=== PATIENT | male | born 2000 | race Caucasian/White ===

== ENCOUNTER 2022-05-10 09:03 | Observation (INO) ==
[2022-05-10] MEDS ORDERED: fentaNYL citrate 100 MCG/2 ML VIAL IV STA ×2 (09:19→09:57)
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
[2022-05-10 09:44] LABS: Basophils # (auto) 0.05 K/uL (0-0.2); Basophils % (auto) 0.6 %; Eosinophils # (auto) 0.12 K/uL (0-0.50); Eosinophils % (auto) 1.4 %; Hematocrit (blood only) 48.8 % (40.1-51.0); Hemoglobin 16.7 g/dl (14.0-18.0); Immature Granulocytes # (auto) 0.04 K/uL (0.00-0.02); Immature Granulocytes % (auto) 0.5 %; Lymphocytes # (auto) 1.24 K/uL (1.2-3.4); Lymphocytes % (auto) 14.4 %; Mean Corpuscular Hemoglobin 29.1 pg (25.0-34.0); Mean Corpuscular Hgb Conc 34.2 g/dL (32.0-36.0); Mean Platelet Volume 11.2 fL (9.4-12.4); Monocytes % (auto) 5.8 %; Neutrophils # (auto) 6.65 K/uL (1.4-6.5); Neutrophils % (auto) 77.3 %; Platelet Count 245 K/uL (130-400); RDW Coefficient of Variation 12.7 % (11.5-14.5); RDW Standard Deviation 39.4 fL (36.4-46.3); Red Blood Count 5.74 M/uL (4.63-6.08)
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
[2022-05-10 10:04] LABS: Alanine Aminotransferase 73 U/L (7-52); Albumin Globulin Ratio 1.4 (0.9-2); Albumin Level 4.4 gm/dl (3.4-5.0); Alkaline Phosphatase 53 U/L (34-104); Anion Gap 5 (3-11); Aspartate Aminotransferase 31 U/L (13-39); BUN Creatinine Ratio 15.6 (10-20); Bilirubin,Total 0.8 mg/dl (0.2-1.0); Blood Urea Nitrogen 20 mg/dl (6-23); Calcium 9.5 mg/dl (8.5-10.1); Carbon Dioxide 28 mmol/L (21-32); Chloride 107 mmol/L (98-107); Est GFR (African American) 92.8 ml/min; Globulin 3.1 gm/dl (2.5-4.0); Glucose 97 mg/dl (70-99(Fasting)); Potassium 4.3 mmol/L (3.5-5.1); Sodium 140 mmol/L (136-145); Total Protein 7.5 gm/dl (6.0-8.3)
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
[2022-05-10] MEDS ORDERED: MoRPHine SULFATE 4 MG/ML 1 ML CARP\\VIAL IV STA ×2 (11:27→12:11)
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
[2022-05-10] MEDS ORDERED: ONDANSETRON INJ 2 MG/ML 2 ML VIAL IV PRN (15:01)
[2022-05-10] MEDS ORDERED: Patient's ALLERGY Info needs ENTERED SCH (15:15)
[2022-05-10] MEDS: oxyCODONE/ACETAMINOPHEN 5mg/325mg TAB PO PRN ×2 (15:58→20:15)
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
[2022-05-11] MEDS: oxyCODONE/ACETAMINOPHEN 5mg/325mg TAB PO PRN (07:34)
[2022-05-11] MEDS ORDERED: BUPIVACAINE 0.5 % 5 MG/1 ML MPF 30ML VIAL ONE (08:55)
[2022-05-11] MEDS ORDERED: EPINEPHrine INJ 1 MG/ML AMP ONE (08:55)
[2022-05-11] MEDS ORDERED: ROPIVACAINE 0.5% 5 MG/ML 30 ML VIAL ONE (09:21)
[2022-05-11] MEDS ORDERED: MIDAZOLAM HCL 1 MG/ML 2ML VIAL ONE ×2 (09:22→09:25)
[2022-05-11] MEDS ORDERED: fentaNYL citrate 100 MCG/2 ML VIAL ONE ×2 (09:28)
[2022-05-11] MEDS ORDERED: ROCURONIUM BROMIDE 10 MG/ML 5 ML VIAL IV ONE (09:28)
[2022-05-11] MEDS ORDERED: PROPOFOL IV EMULSION 10 MG/ML 20 ML VIAL IV ONE ×2 (09:28→11:11)
[2022-05-11] MEDS ORDERED: DEXAMETHASONE SOD INJ 4 MG/ML VIAL ONE (09:28)
[2022-05-11] MEDS ORDERED: LIDOCAINE 2% MPF LOCAL 5 ML VIAL INFIL ONE (09:28)
[2022-05-11] MEDS ORDERED: ONDANSETRON INJ 2 MG/ML 2 ML VIAL ONE (09:28)
--- NOTE | 2022-05-11 09:30 | Anesthesiology Consultation ---
Date of Service May 11, 2022 Assessment & Plan Chart Review Chart Review: Acceptable Risk for Surgery Consults Requested none History Surgery Operation Date: 05/11/22 07:30 Proposed Procedures p Open Reduction Internal Fixation Mid Shaft Humeral Fracture - Lexa Coleman DO Height/Weight Height: 6 ft 2 in Weight: 147.1 kg Allergies Allergy/AdvReac Type Severity Reaction Status Date / Time No Known Allergies Allergy Verified 05/10/22 15:10 Medications Home Medications Medication Instructions Recorded Confirmed Last Taken No Known Home Medications 05/10/22 05/10/22 Unknown Active Medications Generic Name Dose Route Start Last Admin Trade Name Freq PRN Reason Stop Dose Admin Oxycodone/Acetaminophen 1 - 2 tab 05/10/22 15:01 05/11/22 07:34 Oxycodone/Acetaminophen 5mg/325mg Tab PO 05/24/22 15:00 1 tab Q4H PRN Administration Pain NPO Date Last Intake of Fluids: 05/10/22 Time Last Intake of Fluids: 23:59 Last Intake of Fluids Comment: 20 mL H2O to swallow one Percocet at 07:25 Date Last Intake of Solids: 05/10/22 Time Last Intake of Solids: 20:00 Social History Smoking Status: Never smoker Hx Alcohol Use: No Hx Substance Use: No Physical Exam Vital Signs Last Vital Signs Temp 37.0 C 05/11/22 07:10 Pulse 77 05/11/22 07:10 Resp 18 05/11/22 07:10 BP 139/73 05/11/22 07:10 Pulse Ox 96 05/11/22 07:10 O2 Del Method 05/11/22 07:10 Testing Laboratory Results 05/10/22 09:30 05/10/22 09:30
[2022-05-11] MEDS ORDERED: ceFAZolin 330 MG/ML 1 GM VIAL ONE (09:50)
[2022-05-11] MEDS ORDERED: ATROPINE SULFATE 0.1 MG/ML 10ML SYR IV PRN (09:50)
[2022-05-11] MEDS ORDERED: HYDROmorphone INJ 2 MG/ML SYR/VIAL IV PRN (09:50)
[2022-05-11] MEDS ORDERED: PROMETHAZINE HCL 12.5 MG in SODIUM CHLORIDE 0.9% 50 ML IV PRN (09:50)
[2022-05-11] MEDS ORDERED: ePHEDrine sulfate 50 MG/ML AMP IV PRN (09:50)
[2022-05-11] MEDS ORDERED: fentaNYL citrate 100 MCG/2 ML VIAL IV PRN (09:50)
[2022-05-11] MEDS ORDERED: ONDANSETRON INJ 2 MG/ML 2 ML VIAL IV PRN (09:50)
[2022-05-11] MEDS ORDERED: NEOSTIGMINE METHYLSULFATE 1 MG/ML 10ML VIAL ONE (10:28)
[2022-05-11] MEDS ORDERED: GLYCOPYRROLATE 0.2 MG/ML VIAL ONE (10:28)
--- NOTE | 2022-05-11 11:14 | Operative Report ---
PG Post Operative Report Pre & Post Diagnosis Operation Date: 05/11/22 10:00 Pre-Op Diagnosis: Left fracture, humerus closed, shaft Post-Op Diagnosis: Left fracture, humerus closed, shaft I identified the patient and participated in the time-out.: Yes Procedure Operation Date: 05/11/22 10:00 Actual Procedures p Open Reduction Internal Fixation Left Humeral Fracture(Left) - Lexa Coleman DO Surgeon Lexa Coleman DO Textile Technical Officer Lexa Phillips PA-C Estimated Blood Loss 100 Findings Consistent with Post-Op Diagnosis Specimens None Description of Procedure On May 11, 2022 Schuyler was brought out from his hospital room to the preoperative holding area. The operative extremity identified and signed. He was given a preoperative antibiotic. He was taken back to the operating room and laid on the table in supine position. Is put under general anesthesia. The left arm was prepped and draped in sterile fashion. A timeout was done. The patient and the operative extremity was properly identified. An anterior lateral approach was used. Dissection was taken down to the biceps tendon. An interval was made between the biceps tendon and the brachialis. An interval was then created in the middle of the brachialis. I was able then to identify the humeral shaft and the fracture. Time was spent skeletonizing the anterior lateral aspect of the humeral shaft both proximally and distally for application of the plate. The fracture was right at the spiral groove. The radial nerve was identified and tagged with a vessel loop. The radial nerve was carefully identified throughout the case. Clamps were used to reduce the fracture. Fluoroscopic imaging showed anatomic reduction of the fracture. A Synthes 4.5 mm 7 hole plate was then placed. A compression screw was placed proximally and distally. Fluoroscopic images showed good alignment of the plate and near anatomic alignment of the fracture. 2 locking screws were placed proximally and 2 locking screws were placed distally. Final fluoroscopic images showed acceptable alignment of the fracture and placement of the hardware. The wound was then irrigated. The vessel loop was removed and the radial nerve and the radial nerve was inspected to ensure was not entrapped in the fracture and to ensure that there was no damage to the radial nerve. The radial nerve looked fine. The wound was then irrigated. The deep fascia was closed with #1 Vicryl suture. Skin was closed with 2-0 Vicryl and berry. He was placed in a soft dressing and a regular arm sling. He was then extubated and transferred to a [facility]. He was taken to the postanesthesia care unit in stable condition. He tolerated the procedure well. Lexa Phillips PA-C, was present for the entire procedure. He was critical for patient positioning, prepping, draping, retraction exposure, wound closure and application of sterile dressing. I attest to the content of the Intraoperative Record and any orders documented therein. Any exceptions are noted below.
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
--- NOTE | 2022-05-11 11:56 | Fluoroscopy Report ---
FL humerus LT 2V CLINICAL HISTORY: LT ORIF MID-SHAFT FX COMPARISON STUDY: Left humerus radiographs May 10, 2022. FLUOROSCOPY TIME: 17 seconds. FLUOROSCOPIC IMAGES: 2 FINDINGS: Fluoroscopy was provided during open reduction and internal fixation of the left humeral mi d diaphyseal fracture with plate and screws. Fracture alignment has markedly improved and is near [place] tomic. No unexpected radiopaque foreign bodies. IMPRESSION: Fluoroscopy provided during open reduction and internal fixation of the left humeral scarlett physeal fracture. ACT 112: Negative or not required by law. Electronically signed by: Estuardo Parra M.D. 05/11/2022 11:54 AM
[2022-05-11] MEDS ORDERED: ACETAMINOPHEN 500 MG TAB PO PRN (12:23)
[2022-05-11] MEDS ORDERED: oxyCODONE HCL IR 5 MG TAB (IMMEDIATE RELEASE) PO PRN (12:23)
--- NOTE | 2022-05-11 14:07 | Anesthesiology Progress Note ---
Date of Service May 11, 2022 Anesthesia Post Procedure Vital Signs Vital Signs: Temp Pulse Pulse Resp BP Pulse Ox O2 Del Method 05/11/22 13:20 92 H 16 110/70 95 05/11/22 12:55 36.6 C 84 18 116/75 94 Room Air 05/11/22 12:20 36.6 C 89 18 123/79 95 Room Air 05/11/22 12:00 93 H 14 117/79 96 Room Air 05/11/22 11:50 86 18 124/79 96 Oxymask 05/11/22 11:40 83 21 126/80 100 Oxymask 05/11/22 12:10 36.1 C L 79 21 126/78 95 Room Air 05/11/22 11:30 36.1 C L 80 16 130/77 96 Oxymask 05/11/22 07:10 37.0 C 77 18 139/73 96 Room Air 05/10/22 21:13 37 C 73 18 108/69 96 05/10/22 19:15 Room Air 05/10/22 14:50 Room Air 05/10/22 14:50 36.7 C 84 18 128/75 100 Room Air 05/10/22 14:32 78 20 140/76 98 Room Air O2 Flow Rate 05/11/22 13:20 05/11/22 12:55 05/11/22 12:20 05/11/22 12:00 05/11/22 11:50 4 05/11/22 11:40 6 05/11/22 12:10 05/11/22 11:30 6 05/11/22 07:10 05/10/22 21:13 05/10/22 19:15 05/10/22 14:50 05/10/22 14:50 05/10/22 14:32 Pain Intensity Left Arm: Pain Intensity: 6 Transfer of Care Handoff Completed per policy Notes Mental Status: alert / awake / arousable and participated in evaluation Patient Amnestic to Procedure: Yes Nausea / Vomiting: adequately controlled Pain: adequately controlled Airway Patency, RR, SpO2: stable & adequate BP & HR: stable & adequate Hydration State: stable & adequate Anesthetic Complications: no major complications apparent
== END 2022-05-11 18:10 | disposition home health service (06) | DRG 494 ==
LOC: ED 09:03 → INTOOBSV 12:45 → 3N 12:45
DX: S42.302A Unspecified fracture of shaft of humerus, left arm, initial encounter for closed fracture; Y92.89 Other specified places as the place of occurrence of the external cause; V86.55XA Driver of 3- or 4- wheeled all-terrain vehicle (ATV) injured in nontraffic accident, initial encounter